=== PATIENT | female | born 1980 | race Caucasian/White ===

== ENCOUNTER 2016-04-13 01:17 | Emergency (ER) | payer BC ==
--- NOTE | 2016-04-13 01:37 | ED.PDOC ---
History of Present Illness - General Chief Complaint: GI Problem Stated Complaint: galbladder spasms Time Seen by Provider: 04/13/16 01:36 Source: patient Exam Limitations: no limitations - History of Present Illness Initial Comments: Ms. Aubrie Tolliver 35 y/o female with history of gallstone diagnosed by [facility] 2 months ago stated that she stared having dull squeezing abdominal pain - epigastrium which started tonight becoming more constant with radiation to her mid back had also nausea/vomiting and diarrhea.She stated ate taco for supper tonight. Had seen gi specialist and recommended surgery but could not schedule it alec stating she needs to wait spring break or summer vacation. Timing/Duration: 1-3 hours Severity: moderate Improving Factors: nothing Worsening Factors: nothing Associated Symptoms: nausea/vomiting Allergies/Adverse Reactions: Allergies NO KNOWN ALLERGY Allergy (Verified 04/13/16 01:27) Home Medications: Ambulatory Orders Gabapentin [Neurontin] 100 mg PO DAILY 04/13/16 Promethazine HCl 50 mg PO TID PRN #30 tab 04/13/16 Ranitidine HCl [Acid Fox Raiser] 150 mg PO BID #60 tab 04/13/16 Review of Systems - Review of Systems Constitutional: States: no symptoms reported EENTM: States: no symptoms reported Respiratory: States: no symptoms reported Cardiology: States: no symptoms reported Gastrointestinal/Abdominal: States: see HPI, abdominal pain, diarrhea, nausea, vomiting Genitourinary: States: no symptoms reported Musculoskeletal: States: no symptoms reported Skin: States: no symptoms reported Neurological: States: no symptoms reported Endocrine: States: no symptoms reported Hematologic/Lymphatic: States: no symptoms reported Past Medical History (General) - Patient Medical History Hx Other PMH: Yes - gallstone seen gi specialist in February Family Medical History - Family History Mother Family History: Unknown Hx Family;Other: elevated cholesterol -dad Physical Exam - Physical Exam General Appearance: Alert, Anxious, No apparent distress Eye Exam: bilateral normal Ears, Nose, Throat: hearing grossly normal, normal ENT inspection, normal pharynx Neck: non-tender, full range of motion, supple, normal inspection Respiratory: chest non-tender, lungs clear, normal breath sounds, no respiratory distress Cardiovascular/Chest: normal peripheral pulses, regular rate, rhythm, no edema, no gallop, no JVD, no murmur Gastrointestinal/Abdominal: normal bowel sounds, soft, no organomegaly, tenderness - epigastrium, other - no peritoneal signs Back Exam: normal inspection, no CVA tenderness, no vertebral tenderness Extremity: non-tender, no pedal edema, no calf tenderness Neurologic: no motor/sensory deficits, alert, normal mood/affect, oriented x 3 Skin Exam: normal color, warm/dry Lymphatic: no adenopathy Progress - Results/Orders Results/Orders: Laboratory Results WBC 4.7 K/mm3 (4.8-10.8) L 04/13/16 02:22 RBC 3.97 M/mm3 (4.20-5.40) L 04/13/16 02:22 Hgb 12.4 gm/dL (12.0-16.0) 04/13/16 02:22 Hct 37.4 % (36.0-47.0) 04/13/16 02:22 MCV 94.3 fl (81.0-99.0) 04/13/16 02:22 MCH 31.2 pg (27.0-31.0) H 04/13/16 02:22 MCHC 33.3 g/dL (33.0-37.0) 04/13/16 02:22 RDW 13.0 % (11.5-14.5) 04/13/16 02:22 Plt Count 195 K/mm3 (130-400) 04/13/16 02:22 MPV 8.6 fl (7.40-10.4) 04/13/16 02:22 Absolute Neuts (auto) 3.50 K/uL (1.8-6.8) 04/13/16 02:22 Absolute Lymphs (auto) 0.80 K/uL (1.0-3.4) L 04/13/16 02:22 Absolute Monos (auto) 0.40 K/uL (0.2-0.8) 04/13/16 02:22 Absolute Eos (auto) 0.00 K/uL (0.0-0.4) 04/13/16 02:22 Absolute Basos (auto) 0.00 K/uL (0.0-0.1) 04/13/16 02:22 Neutrophils % 75.3 % (42.0-78.0) 04/13/16 02:22 Lymphocytes % 16.7 % (20.0-50.0) L 04/13/16 02:22 Monocytes % 7.5 % (2.0-9.0) 04/13/16 02:22 Eosinophils % 0.2 % (1.0-5.0) L 04/13/16 02:22 Basophils % 0.3 % (0.0-2.0) 04/13/16 02:22 Sodium 142 mmol/L (135-145) 04/13/16 02:22 Potassium 3.8 mmol/L (3.6-5.0) 04/13/16 02:22 Chloride 104 mmol/L (101-111) 04/13/16 02:22 Carbon Dioxide 30 mmol/L (21-31) 04/13/16 02:22 Anion Gap 11.8 (12-18) L 04/13/16 02:22 BUN 12 mg/dL (7-18) 04/13/16 02:22 Creatinine 0.51 mg/dL (0.6-1.3) L 04/13/16 02:22 BUN/Creatinine Ratio 23.5 (10-20) H 04/13/16 02:22 Random Glucose 132 mg/dL (70-105) H 04/13/16 02:22 Serum Osmolality 284.7 mOsm/L (275-295) 04/13/16 02:22 Calcium 8.8 mg/dL (8.4-10.2) 04/13/16 02:22 Total Bilirubin 1.0 mg/dL (0.2-1.0) 04/13/16 02:22 AST 662 IU/L (10-42) H 04/13/16 02:22 ALT 324 IU/L (10-60) H 04/13/16 02:22 Alkaline Phosphatase 93 IU/L (42-121) 04/13/16 02:22 Serum Total Protein 7.5 gm/dL (6.4-8.2) 04/13/16 02:22 Albumin 3.9 g/dl (3.2-5.5) 04/13/16 02:22 Globulin 3.6 gm/dL (2.3-3.5) H 04/13/16 02:22 Albumin/Globulin Ratio 1.1 (1.1-1.9) 04/13/16 02:22 Lipase 22 U/L (22-51) 04/13/16 02:22 Urine Color Yellow (Yellow) 04/13/16 02:20 Urine Appearance Cloudy (Clear) 04/13/16 02:20 Urine pH >= 9.0 (4.5-7.8) H* 04/13/16 02:20 Ur Specific [place] 1.015 (1.005-1.030) 04/13/16 02:20 Urine Protein >=300 mg/dL H 04/13/16 02:20 Urine Glucose (UA) Negative mg/dL (Negative) 04/13/16 02:20 Urine Ketones Negative mg/dL (NEGATIVE) 04/13/16 02:20 Urine Blood Negative (Negative) 04/13/16 02:20 Urine Nitrite Negative 04/13/16 02:20 Urine Bilirubin Negative (NEGATIVE) 04/13/16 02:20 Urine Urobilinogen 0.2 mg/dL (0.2-1.0) 04/13/16 02:20 Ur Leukocyte Esterase Negative (Negative) 04/13/16 02:20 Urine RBC 0 /hpf 04/13/16 02:20 Urine WBC 0-1 /hpf 04/13/16 02:20 Ur Epithelial Cells 3-5 /hpf 04/13/16 02:20 Amorphous Sediment 3+ 04/13/16 02:20 Urine Bacteria 2+ H 04/13/16 02:20 Urine HCG, Qual Negative 04/13/16 02:05 Departure - Departure Clinical Impression: Personal history of gallstones, Abnormal liver enzymes, Epigastric abdominal pain Time of Disposition: 03:36 Disposition: Discharge to Home or Self Care Condition: Good Departure Forms: ED Discharge - Pt. Copy, Patient Portal Self Enrollment Instructions: DI for Gallstones Prescriptions: Ranitidine HCl [Acid Fox Raiser] 150 mg PO BID #60 tab Promethazine HCl 50 mg PO TID PRN #30 tab PRN Reason: Nausea Home Medications: Ambulatory Orders Gabapentin [Neurontin] 100 mg PO DAILY 04/13/16 Promethazine HCl 50 mg PO TID PRN #30 tab 04/13/16 Ranitidine HCl [Acid Fox Raiser] 150 mg PO BID #60 tab 04/13/16 Additional Instructions: AVOID GREASY ,SPICY FOODS;May have tea,crackers,toast bread and jelly this am and to advance diet as tolerated
[2016-04-13 01:38] VITALS: TEMP 98.3
[2016-04-13] MEDS ORDERED: LACTATED RINGERS 1,000 ML IVS ONE (01:46)
[2016-04-13] MEDS ORDERED: SODIUM CHLORIDE 0.9% 10 ML VIAL ONE ×2 (02:07→02:11)
[2016-04-13] MEDS: MORPHINE SULFATE INJ 10 MG/ML VIAL IV ONE ×2 (02:09→03:45)
[2016-04-13] MEDS: PANTOPRAZOLE SODIUM IV 40 MG VIAL IV ONE ×2 (02:10→03:45)
[2016-04-13] MEDS: PROMETHAZINE HCL INJ 25 MG/ML VIAL IM ONE ×2 (02:10→03:45)
[2016-04-13 03:31] VITALS: BP 126/70; O2SAT 96
== END 2016-04-13 03:50 | disposition home or self-care (01) ==
LOC: ER 01:17
DX: R10.13 Epigastric pain (principal); R74.8 Abnormal levels of other serum enzymes; R11.2 Nausea with vomiting, unspecified; Z87.19 Personal history of other diseases of the digestive system
CPT/HCPCS: 36415; 80053; 81001; 81025; 83690; 85025; J7120

== ENCOUNTER 2016-04-18 05:57 | Day surgery (SDC) | payer BC ==
[2016-04-18] MEDS ORDERED: GLYCOPYRROLATE 0.2 MG/ML VIAL ONE (07:00)
[2016-04-18] MEDS ORDERED: DEXAMETHASONE INJ 10 MG/ML VIAL ONE (07:00)
[2016-04-18] MEDS ORDERED: LIDOCAINE 1% 10 ML VIAL INJ ONE (07:00)
[2016-04-18] MEDS ORDERED: METOCLOPRAMIDE HCL INJ 10 MG/2 ML VIAL ONE (07:00)
[2016-04-18] MEDS ORDERED: raNITIdine HCL INJ 25 MG/ML VIAL ONE (07:00)
[2016-04-18] MEDS ORDERED: PROPOFOL 200 MG/20 ML VIAL IV ONE (07:00)
[2016-04-18] MEDS ORDERED: LACTATED RINGERS 1,000 ML ONE (10:22)
[2016-04-18] MEDS ORDERED: ceFAZolin SODIUM 1 GM VIAL ONE (10:23)
[2016-04-18] MEDS ORDERED: SODIUM CHL 0.9% 100ML MINI-BAG 100 ML IVPB ONE ×2 (10:25→10:28)
[2016-04-18] MEDS ORDERED: MIDAZOLAM INJ 5 MG/5 ML VIAL ONE (12:44)
[2016-04-18] MEDS ORDERED: ROCURONIUM BROMIDE 10 MG/ML VIAL ONE (12:45)
[2016-04-18] MEDS ORDERED: fentaNYL CITRATE INJ 50 MCG/ML AMP ONE (12:45)
[2016-04-18] MEDS ORDERED: HEPARIN SODIUM (PORCINE) 10,000 UNITS/ML VIAL ONE (12:47)
[2016-04-18] MEDS ORDERED: BUPIVACAINE 0.25% W/EPI 50 ML VIAL INJ ONE (12:47)
[2016-04-18] MEDS ORDERED: HYDROmorphone HCL INJ 2 MG/ML VIAL ONE ×2 (14:05→16:02)
[2016-04-18] MEDS ORDERED: ELECTROLYTE-A 1,000 ML ONE (15:00)
[2016-04-18] MEDS ORDERED: ONDANSETRON INJ 4 MG/2 ML VIAL ONE (15:48)
[2016-04-18] MEDS ORDERED: ONDANSETRON INJ 4 MG/2 ML VIAL IV ONE (15:50)
[2016-04-18] MEDS ORDERED: HYDROmorphone HCL INJ 2 MG/ML VIAL IV ONE (16:05)
[2016-04-18 16:25] VITALS: TEMP 97.9
[2016-04-18 16:33] VITALS: BP 120/70; O2SAT 99
--- NOTE | 2016-04-18 18:06 | OP ---
DATE OF PROCEDURE: 04/18/16 PREOPERATIVE DIAGNOSIS: 1. Symptomatic cholelithiasis. POSTOPERATIVE DIAGNOSIS: 1. Symptomatic cholelithiasis. 2. Chronic cholecystitis. 3. Dilated common bile duct. PROCEDURE: 1. Laparoscopic cholecystectomy with intraoperative cholangiography using fluoroscopy. SURGEON: Jacob Naranjo M.D. VOCAL ARTIST: None. ANESTHESIA: Local infiltration of 0.25% Marcaine and General endotracheal anesthesia. INDICATION FOR SURGERY: The patient is a 35 year-old female who has had right upper quadrant pain with radiation to the back, fatty food intolerance and some back pain. She has sonographically been diagnosed with cholelithiasis and was brought to the Surgical Suite today for cholecystectomy after the risks, benefits, and alternatives of the procedure were discussed and accepted. FINDINGS AT TIME OF PROCEDURE: The patient had a dilated bile duct and a small amount of adhesions to it. The gallbladder had multiple stones. Intraoperative cholangiography revealed free flow into the duodenum with no filling defects or strictures noted, but it was dilated. No distinct filling defects were identified. The stones found in the gallbladder were extremely small from 1 to 2 mm up to approximately 4 to 5 mm. They were soft and cholesterol stones. No other intraoperative pathology was identified except a small number of adhesions to the liver from her previous procedure. DESCRIPTION OF PROCEDURE: After adequate general endotracheal anesthesia was obtained, the patient was prepped and draped in the usual sterile manner. A surgical time out was taken. The previous supraumbilical incision was infiltrated with local anesthesia and divided sharply. Dissection was carried down to the midline fascia using electrocautery. Traction sutures were placed on either side of the midline. A small incision was made in the midline fascia and the peritoneum was opened bluntly. Kentrell trocar was introduced under direct vision into the abdominal cavity and fixed in place with the traction sutures. CO2 was then insufflated until a pressure of 12 mmHg was reached and the abdomen was tympanitic in all four quadrants. When this was done, the laparoscope was introduced. The abdomen was inspected with the previously noted findings. The upper abdominal ports were placed under direct vision. The gallbladder was grasped, retracted anteriorly and laterally. The adhesions to the gallbladder were taken down using electrocautery and blunt dissection. The neck of the gallbladder was retracted laterally. The triangle of Calot was then explored with the cystic duct identified and isolated. A small incision was made in the cystic duct. The cholangiogram catheter was introduced through a separate stab wound in the right upper quadrant, introduced and clipped in place. Cholangiograms were then taken using fluoroscopy which revealed free flow into the duodenum but with an extremely large bile duct with no obvious filling defects. The upper abdominal biliary tree was within normal limits. At this point, the cystic duct catheter was removed. The cystic duct was hemoclipped three times distally and divided between the hemoclips. The cystic artery was divided after it was clipped twice proximally. The gallbladder was dissected free from the gallbladder bed of the liver using electrocautery. There was some oozing from the gallbladder bed of the liver which was controlled with electrocautery. When this was done, the wound was irrigated with saline. Hemostasis was noted to be adequate. The gallbladder was removed from the supraumbilical port site in the usual manner under direct vision. When this was done, the subhepatic space and subphrenic space were irrigated copiously with saline. The effluent was noted to be clear. The adama hepatis was inspected and no bleeding or bile leak was identified. The gallbladder bed of the liver was inspected and there was adequate hemostasis. So at this point , again all fluid was aspirated and then the upper abdominal ports were removed under direct vision, and good hemostasis was noted. When this was done, the CO2 and the supraumbilical port were removed. The supraumbilical port site fascia was approximated with a single [id number] suture of 0 Vicryl. Subcutaneous tissue was irrigated with saline. Skin edges were approximated with 4-0 Vicryl subcuticular sutures, benzoin and Steri-Strips. Sterile dressings were applied. The patient was awakened and taken to the Recovery Room in good and stable condition. Estimated blood loss was less than 75 mL. All sponge, needle and instrument counts were correct. #[id number] [facility]
== END 2016-04-18 17:58 | disposition home or self-care (01) ==
LOC: AMB 05:57
PROVIDERS: ATTEND Surgery
DX: K80.10 Calculus of gallbladder with chronic cholecystitis without obstruction (principal); Z88.8 Allergy status to other drugs, medicaments and biological substances; Z98.84 Bariatric surgery status; Z87.891 Personal history of nicotine dependence; Z79.899 Other long term (current) drug therapy